=== PATIENT | female | born 1940 | race Caucasian/White ===

== ENCOUNTER 2016-12-15 20:29 | Emergency (ER) | payer MEDICARE, OTHER ==
[~2016-12-15] VITALS: Ht 154.9 cm; Wt 67.7 kg
[~2016-12-15 20:29] MED LIST: ASCO500C7 PO; FER325 PO; LISI20TA11 PO; METO100T13 PO; PANT40TA3 PO
[2016-12-15 21:13] VITALS: Ht 154.9 cm; Wt 67.7 kg
--- NOTE | 2016-12-15 23:04 | ERD ---
ER Documentation Chief Complaint Date/Time DATE: 12/15/16 TIME: 22:41 Chief Complaint NITA LEG PAIN AND SWELLING X4 DAYS. ALSO C/O GEN BODY PAIN HPI This 76-year-old female presents here in emergency department for complaints of bilateral lower leg pain and swelling for 4 days. Patient described pain as throbbing pain, 6/10 scale, not better or worse with anything. Patient states that it is accompanied with swelling, this time, it is not swollen, it got better today. Patient denies any trauma and affected area. Patient denies any fever or chills. Patient denies any numbness or tingling. Patient denies any redness. Patient denies any deformity. Patient did not take any medications to help with symptoms ROS All systems reviewed and are negative except as per history of present illness. Medications Home Meds Active Scripts Ascorbic Acid* (Vitamin C*) 500 Mg Capsule.sa, 500 MG PO DAILY, #30 CAP Prov:ARIADNE VICENTE MD 07/24/16 Ferrous Sulfate* (Ferrous Sulfate*) 325 Mg Tabec, 325 MG PO DAILY, #30 TAB 1 Refill Prov:ARIADNE VICENTE MD 07/24/16 Pantoprazole* (Protonix*) 40 Mg Tablet.dr, 40 MG PO BID, #60 TAB Prov:ARIADNE VICENTE MD 07/24/16 Reported Medications Lisinopril* (Lisinopril*) 20 Mg Tablet, 20 MG PO DAILY, #30 TAB 04/11/16 Metoprolol Succinate* (Toprol XL*) 100 Mg Tab.sr.24h, 100 MG PO DAILY, #30 TAB 04/11/16 Allergies Allergies: Coded Allergies: sulfamethoxazole (Verified Allergy, Unknown, RASHES,VOMITING, 07/22/16) trimethoprim (Verified Allergy, Unknown, RASHES,VOMITING, 07/22/16) PMhx/Soc History of Surgery: Yes (left knee surgery, cataract, umbilical and inguinal hernia) Anesthesia Reaction: No Hx Neurological Disorder: No Hx Respiratory Disorders: No Hx Cardiac Disorders: Yes (htn) Hx Psychiatric Problems: No Hx Miscellaneous Medical Probl: No Hx Alcohol Use: No Hx Substance Use: No Hx Tobacco Use: No FmHx Family History: No coronary disease, No diabetes, No other Physical Exam Vitals Vital Signs Date Time Temp Pulse Resp B/P Pulse Ox O2 Delivery O2 Flow Rate FiO2 12/15/16 21:13 98.9 64 18 143/65 96 Physical Exam GENERAL: The patient is well developed and appropriate for usual state of health, in no apparent distress. CHEST: Clear to auscultation bilaterally. There are no rales, wheezes or rhonchi. HEART: Regular rate and rhythm. No murmurs, clicks, rubs or gallops. No S3 or S4. ABDOMEN: Soft, nontender and nondistended. Good bowel sounds. No rebound or guarding. No gross peritonitis. No gross organomegaly or masses. No Moreira sign or McBurney point tenderness. BACK: No midline or flank tenderness. EXTREMITIES: Noted no swelling in bilateral lower legs though there is tenderness on palpation of bilateral calf area, no redness noted. Equal pulses bilaterally. There is no peripheral clubbing, cyanosis or edema. No focal swelling or erythema. Full range of motion. Grossly neurovascularly intact. NEURO: Alert and oriented. Cranial nerves 2-12 intact. Motor strength in all 4 extremities with 5/5 strength. Sensation grossly intact. Normal speech and gait. SKIN: There is no apparent rash or petechia. The skin is warm and dry. HEMATOLOGIC AND LYMPHATIC: There is no evidence of excessive bruising or lymphedema. No gross cervical, axillary, or inguinal lymphadenopathy. Results 24 hrs PROCEDURE: Ultrasound of the bilateral lower extremity venous system. CLINICAL INDICATION: Bilateral leg pain and swelling, deep venous thrombosis TECHNIQUE: Dixon scale with and without compression, color doppler, spectral doppler of the venous system of the bilateral lower extremities was performed. Venous augmentation maneuvers were utilized. COMPARISON: No prior studies are available for comparison. FINDINGS: RIGHT: Common femoral vein: Patent. Superficial femoral vein: Patent. Popliteal vein: Patent. Calf veins: Patent. No soft tissue abnormalities are identified. LEFT: Common femoral vein: Patent. Superficial femoral vein: Patent. Popliteal vein: Patent. Calf veins: Patent. No soft tissue abnormalities are identified. IMPRESSION: No evidence of a deep vein thrombosis within the bilateral lower extremities. RPTAT: AADD .Steve Franks MD, MD Date Time Electronically viewed and signed by .Steve Franks MD, on 12/15/2016 23:25 .B/ CC: OLAMIDE WEST NP Procedures/MDM Medical Decision Making: Patient's pain is most likely consistent with a calf muscle strain, at this time, no swelling noted, no DVT noted, multiple dependent edema when walking at times, but at this time, no visualized swelling or palpable swelling or pitting edema.. There is no suspicion for neurovascular compromise. Patient has intact sensation and circulation of the affected extremity. There is low suspicion for septic arthritis. Patient does not have any fever. Radiology exams of the affected area does not show any fracture or dislocation. Disposition: Home. Patient is given prescription for ibuprofen for pain. Patient was advised to elevate the affected area and apply ice on affected area. Patient was advised that if symptoms are worse, numbness, tingling, high fever, unable to move joint, worsening symptoms, to return to emergency department immediately. Otherwise, patient is advised to follow up with the primary care doctor in 5-7 days for reevaluation of symptoms. Departure Diagnosis: Primary Impression: Bilateral leg pain Condition: Stable Patient Instructions: Muscle Strain, Extremity Additional Instructions: Patient is given prescription for ibuprofen for pain. Patient was advised to elevate the affected area and apply ice on affected area. Patient was advised that if symptoms are worse, numbness, tingling, high fever, unable to move joint , worsening symptoms, to return to emergency department immediately. Otherwise, patient is advised to follow up with the primary care doctor in 5-7 days for reevaluation of symptoms. OLAMIDE WEST NP Dec 15, 2016 22:55
--- NOTE | 2016-12-15 23:25 | RADRPT ---
PROCEDURE: Ultrasound of the bilateral lower extremity venous system. CLINICAL INDICATION: Bilateral leg pain and swelling, deep venous thrombosis TECHNIQUE: Dixon scale with and without compression, color doppler, spectral doppler of the venous system of the bilateral lower extremities was performed. Venous augmentation maneuvers were utilized . COMPARISON: No prior studies are available for comparison. FINDINGS: RIGHT: Common femoral vein: Patent. Superficial femoral vein: Patent. Popliteal vein: Patent. Calf veins: Patent. No soft tissue abnormalities are identified. LEFT: Common femoral vein: Patent. Superficial femoral vein: Patent. Popliteal vein: Patent. Calf veins: Patent. No soft tissue abnormalities are identified. IMPRESSION: No evidence of a deep vein thrombosis within the bilateral lower extremities. RPTAT: AADD .Steve Franks MD, Date Time Electronically viewed and signed by .Steve Franks MD, on 12/15/2016 23:25 .B/
[2016-12-15] MEDS ORDERED: IBUP400T22 PO (23:40)
[2016-12-15 23:47] VITALS: BP 150/74; PULSE 63; RESP 16
== END 2016-12-15 23:58 | disposition home or self-care (01) ==
LOC: E/R 20:29 → FTE 23:58
DX: M79.662 Pain in left lower leg (principal); M79.661 Pain in right lower leg; I10 Essential (primary) hypertension
CPT/HCPCS: 93970

== ENCOUNTER → 2017-09-17 | Outpatient (CLI) | payer MEDICARE, OTHER ==
[~2017-09-17] MED LIST changes: +IBUP400T22 PO; +METO-336 PO; -METO100T13 PO
--- NOTE | 2017-09-17 21:32 | RADRPT ---
PROCEDURE: Left knee radiographs. CLINICAL INDICATION: Left knee pain. Postop. TECHNIQUE: Three views. Weight bearing. Frontal, lateral, and patellar view. COMPARISON: 01/04/2014. FINDINGS: There is no fracture or dislocation. The soft tissues are normal. 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 There is no lytic or blastic lesion. IMPRESSION: 1. Satisfactory postoperative appearance of the left knee. 2. No change from 01/04/2014. RPTAT: QQ .Leo Marshall MD, MD Date Time Electronically viewed and signed by .Leo Marshall MD, MD on 09/17/2017 21:32 .R/
--- NOTE | 2017-09-22 14:53 | HKNOTE ---
DATE OF SERVICE: [place] [id number] [facility], [address] [place] [address] RE: HEIDY DOYLE Dear Mary: Our patient, Heidy Doyle, underwent a left knee replacement in 2016. She is completely ple ased with the results of the surgery until she took a fall in 02/2017. Since then she has had const ant pain in the knee. She gets pain with every step that she takes. She is not using a walking aid . She is not able to take pain medications or antiinflammtory medications at all, so she has to "to ugh it out." She subsequently had 2 more falls, which did not help matters. In addition to that, she has symptoms suggestive of sciatica because she has pain in the left buttoc k which radiates down the left leg which is reproduced by extension of the lumbar spine, so her pain may, in fact, be coming from her lumbar spine. The knee x-rays are entirely negative and she is being referred for a metal suppression CAT scan of the knee. She will see me again in a week's time. If the CAT scan is completely negative, then we will order MRI scan of the lumbar spine. I have not seen or heard from you for some time now, I hope all is well and I wish you all happiness for the holiday season. Enclosed is a copy of my office notes for today for your files. With warmest regards. Dictated By: MAU HERNANDEZ/VICTORINO Conf#: [id number] DID#: [id number] CC: MARY DEVLIN MD;*End*
== END | disposition home or self-care (01) ==
LOC: HKI 09:50
DX: M25.562 Pain in left knee (principal); Z96.652 Presence of left artificial knee joint
CPT/HCPCS: 73562; G0463

== ENCOUNTER → 2017-09-24 | Outpatient (CLI) | END | disposition home or self-care (01) ==

== ENCOUNTER → 2017-11-06 | Outpatient (CLI) | END | disposition home or self-care (01) ==

== ENCOUNTER → 2017-12-31 | Outpatient (CLI) | END | disposition home or self-care (01) ==

== ENCOUNTER 2018-01-22 06:46 | Day surgery (SDC) | END 2018-01-22 11:55 | disposition home or self-care (01) ==

== ENCOUNTER 2018-06-11 10:13 | Emergency (ER) | END 2018-06-11 14:49 | disposition home or self-care (01) ==

== ENCOUNTER → 2018-06-14 | Outpatient (CLI) | END | disposition home or self-care (01) ==

== ENCOUNTER → 2018-06-28 | Outpatient (CLI) | END | disposition home or self-care (01) ==

== ENCOUNTER → 2018-07-05 | Outpatient (CLI) | END | disposition home or self-care (01) ==

== ENCOUNTER → 2018-07-12 | Outpatient (CLI) | END | disposition home or self-care (01) ==

== ENCOUNTER → 2018-08-13 | Outpatient (CLI) | END | disposition home or self-care (01) ==

== ENCOUNTER → 2018-08-30 | Outpatient (CLI) | END | disposition home or self-care (01) ==

== ENCOUNTER 2018-09-21 09:25 | Day surgery (SDC) | END 2018-09-21 14:52 | disposition home or self-care (01) ==